=== PATIENT | female | born 1955 | race Caucasian/White ===

== ENCOUNTER 2021-08-23 22:05 | Observation (INO) | payer OTHER, MEDICARE ==
[~2021-08-23] VITALS: Ht 162.6 cm; Wt 90.7 kg
--- NOTE | ~2021-08-23 | HC ---
[facility] [place] [address] CONSULTATION Name: EMELINA MENDOZA [id number] Admission: 08/24/21 Attend Phys: Tim Contreras MD Discharge: Date of : 51 Report #: [id number] THIS REPORT FOR: cc: Tawny Monk MD, Cassandra MD Lundgren,Bonifacio Valentine MD [facility] ~ REASON FOR CONSULTATION: Atrial fibrillation. HISTORY OF PRESENT ILLNESS: The patient is a 65-year-old woman with a history of paroxysmal atrial fibrillation and hypertension. Her last episode of atrial fibrillation was about a year ago. She was evaluated at [facility]. It sounds like she converted in the Emergency Department and was sent home on a daily aspirin. Her same symptoms recurred last night, mainly palpitations and pain in her upper shoulder, chest and head. When she presented to the Emergency Department, she was in atrial fibrillation with a rapid ventricular response, treated with IV metoprolol and ultimately, conversion to sinus rhythm. She now feels fine. She reports having a stress study, she thinks about 2 years ago that was nonischemic. No history of bleeding issues or problems. She does report that her father has a history of atrial fibrillation. ALLERGIES: She is allergic to SULFA. MEDICATIONS: Her medicines include gabapentin and irbesartan 150 mg daily. Her past history and medical records have been reviewed and include a history of hypertension and atrial fibrillation. No significant hospitalizations or illnesses. SOCIAL HISTORY: She works as a parts designer. FAMILY HISTORY: Notable for father with atrial fibrillation. REVIEW OF SYSTEMS: All systems negative except as that noted above. PHYSICAL EXAMINATION: GENERAL: A pleasant woman, who is alert and in no distress. VITAL SIGNS: Blood pressure is 116/65, heart rate is 64 and regular. She is afebrile. There are neither xanthelasma, subcutaneous xanthomata, oral mucosal or digital cyanosis or kyphoscoliosis present. CHEST: Clear to auscultation and percussion. HEART: Regular rate and rhythm with normal S1, S2. No murmurs or rubs. ABDOMEN: Soft and nontender. EXTREMITIES: Without cyanosis, clubbing or edema. Radial pulses are 2+. [facility] [address] [place] [address] CONSULTATION Name: EMELINA MENDOZA Room #: [address] [place] [address] MBest.#: [id number] Admission: 08/24/21 Attend Phys: Tim Contreras MD Discharge: Date of : 51 Report #: [id number] NEUROLOGIC: She is alert with a nonfocal exam. LABORATORY DATA: EKG, atrial fibrillation with a rapid ventricular response. Sodium 137, potassium 3.5, creatinine 0.8, glucose 130. Troponin 8. White count 10.2, hemoglobin 13, hematocrit 38, platelet count 277. Chest x-ray is normal. IMPRESSION: 1. Paroxysmal atrial fibrillation. 2. Hypertension. 3. Elevated blood sugar without prior diagnosis of diabetes. 4. Hypercoagulable. RECOMMENDATIONS 1. Long-term anticoagulant therapy. 2. Initiate therapy with beta blockade and flecainide. Outpatient echocardiogram and stress study. 3. Variety of options for treating paroxysmal atrial fibrillation were discussed including antiarrhythmic therapy versus possible ablation. We will explore all issues in more detail as an outpatient. I have discussed all of these issues with the patient and her . Thank you for asking me to participate in her care. By: [id number] [id number] Bonifacio Cochran MD, [facility] /nt
[2021-08-23 22:06] VITALS: BP 173/76
[2021-08-23 22:36] LABS: ABSOLUTE NEUTROPHILS 5.3 thou/uL (1.4-8.2); BASOPHILS 0.7 % (0.0-2.0); EOSINOPHILS 2.3 % (0.0-3.0); HEMATOCRIT 38.8 % (37.0-47.0); HEMOGLOBIN 13.3 gm/dL (12.0-15.0); LYMPHOCYTES 33.5 % (24.0-44.0); MCH 27.5 pg (26.0-34.0); MCHC 34.2 g/dL (28.0-37.0); MCV 80.2 fL (80.0-100.0); MONOCYTES 11.7 % (1.0-8.0); PLATELET COUNT 277 thou/uL (150-400); POLYS 51.8 % (36.0-66.0); RBC 4.84 mil/uL (4.20-5.00); RDW 13.4 % (10.5-14.5); WBC 10.2 thou/uL (4.0-11.0)
[2021-08-23 22:41] LABS: CALCIUM 9.7 mg/dL (8.5-10.1); CREATININE 0.8 mg/dL (0.6-1.0); POTASSIUM 3.5 mmol/L (3.5-5.1)
[2021-08-24 01:04] VITALS: BP 147/81
--- NOTE | 2021-08-24 07:39 | EKG ---
[address] [address] ELECTROCARDIOGRAM REPORT Name: EMELINA MENDOZA Room #: 170-[address] [place] [address]..#: [id number] Admission: 08/24/21 Attend Phys: Tim Contreras MD Discharge: Date of : 51 Report #: [id number] [facility] ED Test Date: 2021-08-23 Test Time: 22:11:21 Pat Name: EMELINA MENDOZA Department: Room: 170 10 Gender: F Director [employer]: : 1955 Requested By: David Pavon Order Number: [id number] : Harish Steve Measurements Intervals [place] Rate: 118 P: CA: QRS: 67 QRSD: 92 T: 32 QT: 345 QTc: 484 Interpretive Statements Atrial fibrillation Ventricular premature complex Borderline low voltage, extremity leads No previous ECG available for comparison Electronically Signed On 08-24-2021 7:39:21 IMPERSONATOR CHARACTER by Harish Steve [email or web address] <ELECTRONICALLY SIGNED> By: Harish Steve MD, [facility] 08/24/21 0739 221 10 Harish Steve MD, FACC /EPI
[2021-08-24 08:35] VITALS: BP 116/65
[2021-08-24] MEDS ORDERED: METOPROLOL SUCC50 MG PO (08:57)
[2021-08-24] MEDS ORDERED: XARELTO20 MG PO (08:57)
[2021-08-24] MEDS ORDERED: DIOVAN HCT 1601 EAC1 PO (08:57)
[2021-08-24] MEDS ORDERED: FLECAINIDE ACET50 M2 PO (08:57)
[2021-08-24 10:27] VITALS: BP 116/65
[2021-08-24 10:33] VITALS: BP 130/68
--- NOTE | 2021-08-24 11:02 | NUR ---
DISOCNTINUE ALL IVS AND TELE. PT UNDERSTANDS ALL FOLLOW UP ORDERS. WILL DISCHARGE TO HOME VIA PRIVATE VEHICLE.
--- NOTE | 2021-08-24 12:35 | EKG ---
[address] [address] ELECTROCARDIOGRAM REPORT Name: EMELINA MENDOZA Room #: 170-[address] [place] [address]..#: [id number] Admission: 08/24/21 Attend Phys: Tim Contreras MD Discharge: Date of : 51 Report #: [id number] [facility] Test Date: 2021-08-24 Test Time: 09:10:51 Pat Name: EMELINA MENDOZA Department: Room: 170 10 Gender: F Medical Stenographer: RODRI : 1955 Requested By: Bonifacio Cochran Order Number: [id number] MD: Harish Steve Measurements Intervals [place] Rate: 58 P: 47 TN: 166 QRS: 53 QRSD: 101 T: 53 QT: 449 QTc: 442 Interpretive Statements Sinus rhythm Low voltage, extremity leads Nonspecific T abnormalities, anterior leads Compared to ECG 08/23/2021 22:11:21 T-wave abnormality now present Atrial fibrillation no longer present Ventricular premature complex(es) no longer present Electronically Signed On 08-24-2021 12:34:53 PHYSICIST CRYOGENICS by Harish Steve [email or web address] <ELECTRONICALLY SIGNED> By: Harish Steve MD, FAC 08/24/21 1234 0910 0910 Harish Steve MD, [facility] /EPI
[2021-08-25 15:09] LABS: GLYCOHEMOGLOBIN (HGB A1C) 6.5 % (4.8-5.6)
== END 2021-08-24 12:15 | disposition home or self-care (01) ==
LOC: ER 22:05 → EROBS 08-24 00:50
PROVIDERS: Emergency Medicine; Internal Medicine; ADMIT Internal Medicine; ATTEND Internal Medicine
DX: I48.0 Paroxysmal atrial fibrillation (principal); Z20.822 Contact with and (suspected) exposure to COVID-19; I10 Essential (primary) hypertension; R73.9 Hyperglycemia, unspecified; D68.59 Other primary thrombophilia; Z79.01 Long term (current) use of anticoagulants; Z79.899 Other long term (current) drug therapy

== ENCOUNTER 2021-08-30 01:41 | Emergency (ER) | payer OTHER, MEDICARE ==
[~2021-08-30] VITALS: Ht 162.6 cm; Wt 90.7 kg
[~2021-08-30 01:41] MED LIST: DIOVAN HCT 1601 EAC1 PO; FLECAINIDE ACET50 M2 PO; METOPROLOL SUCC50 MG PO; XARELTO20 MG PO
[2021-08-30] MEDS ORDERED: IRBESARTAN-HCT1 EAC1 PO (02:01)
[2021-08-30] MEDS ORDERED: NEURONTIN100 MG PO (02:01)
[2021-08-30 02:17] LABS: URINE BILIRUBIN NEGATIVE (Negative); URINE BLOOD 3+ (Negative); URINE CLARITY SL CLOUDY; URINE COLOR YELLOW; URINE GLUCOSE-RANDOM* NEGATIVE (Negative); URINE KETONES NEGATIVE (Negative); URINE NITRITE-REFLEX NEGATIVE (Negative); URINE PROTEIN (DIPSTICK) NEGATIVE (Negative); URINE SPECIFIC GRAVITY >= 1.030 (1.005-1.035); URINE UROBILINOGEN 0.2 E.U./dl (0.2-1.0)
[2021-08-30 02:21] LABS: ABSOLUTE NEUTROPHILS 8.6 thou/uL (1.4-8.2); BASOPHILS 1.2 % (0.0-2.0); EOSINOPHILS 1.7 % (0.0-3.0); HEMATOCRIT 38.5 % (37.0-47.0); HEMOGLOBIN 12.7 gm/dL (12.0-15.0); LYMPHOCYTES 24.9 % (24.0-44.0); MCH 26.6 pg (26.0-34.0); MCV 80.6 fL (80.0-100.0); MONOCYTES 9.5 % (1.0-8.0); PLATELET COUNT 295 thou/uL (150-400); POLYS 62.7 % (36.0-66.0); RBC 4.77 mil/uL (4.20-5.00); RDW 13.6 % (10.5-14.5); WBC 13.7 thou/uL (4.0-11.0)
[2021-08-30 02:28] LABS: CALCIUM 9.3 mg/dL (8.5-10.1); CREATININE 0.8 mg/dL (0.6-1.0); POTASSIUM 3.7 mmol/L (3.5-5.1)
[2021-08-30 02:34] LABS: APTT 36.3 Seconds (24.5-32.8); INR 1.46; PROTIME 15.6 Seconds (10.5-12.1)
[2021-08-30 02:35] LABS: URINE LEUKOCYTES-REFLEX 2+ (Negative)
[2021-08-30 02:37] LABS: ALBUMIN 3.5 g/dL (3.4-5.0); CASTS None Seen /LPF (None Seen); MUCUS None Seen strn/LPF (None Seen); SQUAMOUS 0-3 Few /LPF (0-3); TOTAL BILIRUBIN 0.3 mg/dL (0.2-1.0); TOTAL PROTEIN 7.4 g/dL (6.4-8.2)
[2021-08-30 02:38] LABS: BACTERIA-REFLEX 1-9 Few /HPF (None Seen); CRYSTALS None Seen /LPF (None Seen); URINE RBC 3-10 Few /HPF (NONE SEEN); URINE WBC-REFLEX 6-15 Few /HPF (0-5)
[2021-08-30] MEDS ORDERED: MACROBID 100 M100 M1 PO (04:10)
[2021-08-30] MEDS ORDERED: HYDROCODON-ACE1 EAC7 PO (04:13)
[2021-08-30 04:55] VITALS: BP 177/80
--- NOTE | 2021-08-30 07:10 | EKG ---
[address] [place] [address] ELECTROCARDIOGRAM REPORT Name: EMELINA MENDOZA Room #: [facility]#: [id number] Admission: 08/30/21 Attend Phys: Discharge: 08/30/21 Date of : 51 Report #: [id number] [facility] ED Test Date: 2021-08-30 Test Time: 02:02:27 Pat Name: EMELINA MENDOZA Department: Room: Gender: F Meat Team Member: BIB : 1955 Requested By: Barrington Issa Order Number: [id number] MD: Harish Steve Measurements Intervals [place] Rate: 62 P: 243 [place]V: 86 QRS: 207 QRSD: 64 T: 213 QT: 342 QTc: 348 Interpretive Statements Ectopic atrial rhythm Short WV interval Repol abnrm, severe global ischemia (LM/MVD) Baseline wander in lead(s) I,V1 Compared to ECG 08/24/2021 09:10:51 Ectopic atrial rhythm now present Short [place] interval now present Early repolarization now present Electronically Signed On 08-30-2021 7:10:07 GENETIC ENGINEER by Harish Steve [email or web address] <ELECTRONICALLY SIGNED> By: Harish Steve MD, FACC 08/30/21 0710 1 020 Harish Steve MD, [facility] /EPI
== END 2021-08-30 05:10 | disposition home or self-care (01) ==
LOC: ER 01:41
PROVIDERS: Emergency Medicine
DX: M54.9 Dorsalgia, unspecified (principal); Z20.822 Contact with and (suspected) exposure to COVID-19; N39.0 Urinary tract infection, site not specified; I10 Essential (primary) hypertension; Z79.899 Other long term (current) drug therapy; Z88.2 Allergy status to sulfonamides